=== PATIENT | female | born 1965 | race Caucasian/White ===

== ENCOUNTER 2017-03-29 11:03 | Emergency (ER) | payer OTHER ==
[~2017-03-29] VITALS: Ht 157.5 cm; Wt 124.3 kg
[2017-03-29 12:25] VITALS: BP 155/85
== END 2017-03-29 12:29 | disposition home or self-care (01) ==
LOC: ED 11:03
DX: T22.041A Burn of unspecified degree of right axilla, initial encounter (principal); I10 Essential (primary) hypertension; E11.9 Type 2 diabetes mellitus without complications; X08.8XXA Exposure to other specified smoke, fire and flames, initial encounter; Y93.89 Activity, other specified; Y99.8 Other external cause status; Y92.89 Other specified places as the place of occurrence of the external cause
CPT/HCPCS: Q0162

== ENCOUNTER 2017-07-22 09:04 | Emergency (ER) | payer OTHER ==
[~2017-07-22] VITALS: Ht 157.5 cm; Wt 124.3 kg
[2017-07-22 09:12] VITALS: Ht 157.5 cm; Wt 124.3 kg
[2017-07-22 10:17] VITALS: BP 163/103
== END 2017-07-22 10:48 | disposition home or self-care (01) ==
LOC: ED 09:04
DX: S29.011A Strain of muscle and tendon of front wall of thorax, initial encounter (principal); I10 Essential (primary) hypertension; E11.9 Type 2 diabetes mellitus without complications; Z85.3 Personal history of malignant neoplasm of breast; X58.XXXA Exposure to other specified factors, initial encounter; Y93.89 Activity, other specified; Y92.89 Other specified places as the place of occurrence of the external cause; Y99.8 Other external cause status
CPT/HCPCS: J3010

== ENCOUNTER 2018-01-06 15:21 | Emergency (ER) | payer OTHER ==
[~2018-01-06] VITALS: Ht 160 cm; Wt 121.6 kg
[2018-01-06 15:31] VITALS: BP 141/86; Ht 160 cm; Wt 121.6 kg
== END 2018-01-06 15:42 | disposition left against medical advice (07) ==
LOC: ED 15:21
DX: Z53.21 Procedure and treatment not carried out due to patient leaving prior to being seen by health care provider (principal)

== ENCOUNTER 2018-03-29 19:36 | Emergency (ER) | payer OTHER ==
[~2018-03-29] VITALS: Ht 157.5 cm; Wt 55.3 kg
[2018-03-29 19:38] VITALS: BP 187/96; Ht 157.5 cm; Wt 55.3 kg
== END 2018-03-29 21:22 | disposition home or self-care (01) ==
LOC: ED 19:36
DX: M25.512 Pain in left shoulder (principal); M54.2 Cervicalgia
CPT/HCPCS: 20552; J3301; J3490

== ENCOUNTER 2019-06-21 15:22 | Emergency (ER) | payer OTHER ==
[~2019-06-21] VITALS: Ht 157.5 cm; Wt 118.4 kg
[2019-06-21 15:40] VITALS: Ht 157.5 cm; Wt 118.4 kg
[2019-06-21 16:38] LABS: BASOPHIL % 0.2 % (0-2); PLATELET COUNT 136 x10^3mcL (130-400); RED CELL DISTRIBUTION WIDTH 13.9 % (11.5-14.5)
[2019-06-21 16:54] LABS: CALCIUM 8.4 mg/dL (8.5-10.1); CARBON DIOXIDE 26.7 mmol/L (21-32); CHLORIDE SERUM 103 mmol/L (98-107); CREATININE SERUM 0.8 mg/dL (0.6-1.0); GFR1 > 60 mL/min; GLUCOSE SERUM 276 mg/dL (74-106); POTASSIUM SERUM 3.9 mmol/L (3.5-5.1); SODIUM SERUM 137 mmol/L (136-145)
[2019-06-21 16:55] LABS: ALKALINE PHOSPHATASE 143 U/L (46-116); ALT/SGPT 71 U/L (14-59); AST/SGOT 45 U/L (15-37); BILIRUBIN TOTAL 0.2 mg/dL (0.20-1.00); LIPASE 149 IU/L (73-393)
[2019-06-21 16:57] LABS: ALBUMIN 2.6 g/dL (3.4-5.0)
[2019-06-21 19:35] VITALS: BP 159/85
== END 2019-06-21 19:35 | disposition home or self-care (01) ==
LOC: ED 15:22
PROVIDERS: Emergency Medicine
DX: M54.41 Lumbago with sciatica, right side (principal); I10 Essential (primary) hypertension; E11.9 Type 2 diabetes mellitus without complications
CPT/HCPCS: 36415; J1885